=== PATIENT | female | born 1990 | race Hispanic/Latino ===

== ENCOUNTER 2021-04-18 19:09 | Emergency (ER) | payer MEDICAID, OTHER ==
[~2021-04-18] VITALS: Ht 160 cm; Wt 87.1 kg
[2021-04-18 20:04] LABS: BASOPHILS % (AUTO) 0.5 % (0.0-5.0); EOSINOPHILS % (AUTO) 1.3 % (0.0-8.0); HEMATOCRIT 38.5 % (36-48); LYMPHOCYTES % (AUTO) 43.2 % (21.0-51.0); MEAN CORPUSCULAR HEMOGLOBIN 26.8 pg (27.0-33.0); MEAN CORPUSCULAR HGB CONC 33.2 g/dL (32.0-36.0); MEAN CORPUSCULAR VOLUME 80.7 fL (79-99); MONOCYTES % (AUTO) 7.8 % (3.0-13.0); NEUTROPHILS % (AUTO) 47.1 % (40.0-77.0); PLATELET COUNT (AUTO) 274 K/uL (130-400); RED BLOOD CELL COUNT(AUTO) 4.77 MIL/uL (4.00-5.50); RED CELL DISTRIBUTION WIDTH 12.7 % (11.0-15.5); WHITE BLOOD COUNT (AUTO) 8.4 K/uL (4.8-10.8)
[2021-04-18 20:18] LABS: CREATININE 0.8 mg/dL (0.5-1.5); POTASSIUM 3.9 mmol/L (3.5-5.1)
[2021-04-18 20:23] LABS: ALBUMIN 3.6 g/dL (3.5-5.0); BILIRUBIN,TOTAL 0.4 mg/dL (0.2-1.0); TOTAL PROTEIN, SERUM 7.5 g/dL (6.0-8.3)
[2021-04-18] MEDS ORDERED: MELO7.5T12 PO (20:49)
[2021-04-18] MEDS ORDERED: CYCL-309 PO (20:49)
[2021-04-18] MEDS ORDERED: KETOROLAC 30MG VIAL (30MG/ML) IV ONE (21:00)
[2021-04-18] MEDS ORDERED: ORPHENADRINE CITRATE 30 MG/ML ML IV ONE (21:00)
[2021-04-18] MEDS ORDERED: KETOROLAC 30MG VIAL (30MG/ML) ONE (21:20)
[2021-04-18] MEDS ORDERED: ORPHENADRINE CITRATE 30 MG/ML ML ONE (21:20)
[2021-04-18 21:34] VITALS: BP 132/84
== END 2021-04-18 21:35 | disposition home or self-care (01) ==
LOC: EDH 19:09
DX: M62.838 Other muscle spasm (principal); R07.89 Other chest pain; I83.92 Asymptomatic varicose veins of left lower extremity; Z79.1 Long term (current) use of non-steroidal anti-inflammatories (NSAID)
CPT/HCPCS: 36415; 71045; 80053; 84484; 85025; 93005; 96374; 96375; 99285; J1885; J2360